=== PATIENT | male | born 1960 | race Two or more races ===

== ENCOUNTER → 2023-11-28 | Outpatient (CLI) | payer MEDICARE, OTHER ==
--- NOTE | 2023-11-28 10:39 | US ---
EXAMINATION TYPE: US liver DATE OF EXAM: 11/28/2023 COMPARISON: NONE CLINICAL INDICATION: Male, 63 years old with history of R94.5 ABN LIVER FUNCTION; Abnormal liver func tion test. TECHNIQUE: Multiple sonographic images of the right upper quadrant are obtained. FINDINGS: EXAM MEASUREMENTS: Liver Length: 16.7 cm Gallbladder Wall: 0.28 cm CBD: 0.54 cm Right Kidney: 13.0 x 6.3 x 4.4 cm REAL ESTATE REP NOTES: Exam is limited due to overlying bowel gas. Pancreas: Obscured. Liver: Slightly increased echogenicity. Coarse echotexture. Gallbladder: Multiple folds seen within the gallbladder. Evidence for sonographic Varma's sign: No CBD: Appears wnl Right Kidney: Enlarged. Renal pelvis appears dilated. IMPRESSION: 1. No evidence for acute process. 2. Mildly heterogenous liver compatible with hepatocellular disease. No suspicious masses. 3. Right extrarenal pelvis versus pelviectasis.
== END | disposition home or self-care (01) ==
LOC: RADUSWWP 08:49
PROVIDERS: ATTEND Internal Medicine
DX: R94.5 Abnormal results of liver function studies (principal); K76.89 Other specified diseases of liver
CPT/HCPCS: 76705

== ENCOUNTER 2024-08-27 10:03 | Day surgery (SDC) | payer MEDICARE, OTHER ==
[2024-08-27] MEDS: IV FLUID CONTINUATION 1,000 ML IV ONE (10:26)
[2024-08-27 10:29] VITALS: TEMP 97.3
[2024-08-27] MEDS: MIDAZOLAM 2 MG/2 ML VIAL IV ONE (10:56)
[2024-08-27] MEDS ORDERED: PROPOFOL 10 MG/ML 20 ML VIAL IV ONE (11:03)
[2024-08-27] MEDS ORDERED: LIDOCAINE 1% INJ 10MG/ML (20 ML MDV) ONE (11:03)
--- NOTE | 2024-08-27 11:04 | P.GSHP ---
History of Present Illness H&P Date: 08/27/24 Chief Complaint: Colon cancer screening 64-year-old male here for colonoscopy. He has not had 1 previously. No bowel complaints. No family history of colon cancer. Past Medical History Past Medical History: Hyperlipidemia Additional Past Medical History / Comment(s): has trouble breathing out of his nose, was fx. in the past, insomnia History of Any Multi-Drug Resistant Organisms: None Reported Past Surgical History: No Surgical Hx Reported Additional Past Anesthesia/Blood Transfusion Reaction / Comment(s): no family problems w/surgery or anesthesia Smoking Status: Never smoker Medications and Allergies Home Medications Medication Instructions Recorded Confirmed Type Ergocalciferol [Vitamin D2 (1250 1,250 mcg PO FR 08/23/24 08/27/24 History Mcg = 84851 Iu)] FLUoxetine HCL [PROzac] 20 mg PO 1700 08/23/24 08/27/24 History FLUoxetine HCL [Prozac] 40 mg PO 2000 08/23/24 08/27/24 History QUEtiapine [SEROquel] 200 mg PO HS 08/23/24 08/27/24 History Rosuvastatin Calcium [Crestor] 5 mg PO 1600 08/23/24 08/27/24 History clonazePAM [KlonoPIN] 0.5 mg PO 0800,1100,1400,1700 08/23/24 08/27/24 History Allergies Allergy/AdvReac Type Severity Reaction Status Date / Time No Known Allergies Allergy Verified 08/23/24 16:01 Surgical - Exam Vital Signs Temp Pulse Resp BP Pulse Ox 97.3 F L 48 L 16 136/69 97 08/27/24 10:27 08/27/24 10:27 08/27/24 10:27 08/27/24 10:27 08/27/24 10:27 Physical exam: General: Well-developed, well-nourished HEENT: Normocephalic, sclerae nonicteric Abdomen: Nontender, nondistended Extremities: No edema Neuro: Alert and oriented Assessment and Plan (1) Colon cancer screening Narrative/Plan: Will proceed with colonoscopy at this time. Current Visit: Yes Status: Acute Code(s): Z12.11 - ENCOUNTER FOR SCREENING FOR MALIGNANT NEOPLASM OF COLON SNOMED Code(s): 755352405
--- NOTE | 2024-08-27 11:35 | P.PCN ---
Date of Procedure: 08/27/24 Procedure(s) Performed: PREOPERATIVE DIAGNOSIS: Colon cancer screening POSTOPERATIVE DIAGNOSIS: Multiple polyps, diverticulosis PROCEDURE: Colonoscopy with snare polypectomy and clip placement ANESTHESIA: MAC SURGEON: Shane Ramesh M.D. SPECIMENS: Polyps ENDOSCOPIC PROCEDURE: The patient was placed on the endoscopy table in the left decubitus position. The Olympus colonoscope was inserted into the anus and passed under direct visualization to the base of the cecum. The appendiceal orifice was visualized. From that point the scope was slowly withdrawn inspecting all surfaces carefully. There were no neoplastic inflammatory or polypoid lesions throughout the cecum, ascending, transverse, or descending colon. In the sigmoid colon there were 2 small polyps removed using the snare with cautery technique. In the rectum at 12 cm there was a larger polyp measuring just over 2 cm that was removed as 2 pieces. The polypectomy site measured about 1 to 1.5 cm and 2 clips were deployed to reapproximate the mucosal margins. In the rectum distally there were a total of 4 polyps the largest measuring about 1.5 cm. These were again removed using the snare with cautery technique. The patient had mild scattered diverticulosis. Digital rectal examination was normal. The patient was taken to the recovery room in stable condition per anesthesia guidelines. RECOMMENDATIONS: Await biopsy results. Will require short-term repeat colonoscopy 6 to 12 months.
[2024-08-27 11:43] VITALS: PULSE 44
[2024-08-27 11:54] VITALS: BP 110/63; RESP 16
== END 2024-08-27 12:27 | disposition home or self-care (01) ==
LOC: ORWHC2ENDO 10:03
PROVIDERS: ATTEND Surgery
DX: Z12.11 Encounter for screening for malignant neoplasm of colon (principal); D12.5 Benign neoplasm of sigmoid colon; D12.8 Benign neoplasm of rectum; K57.30 Diverticulosis of large intestine without perforation or abscess without bleeding; E78.5 Hyperlipidemia, unspecified; G47.00 Insomnia, unspecified; F41.9 Anxiety disorder, unspecified; F40.00 Agoraphobia, unspecified; Z79.899 Other long term (current) drug therapy
CPT/HCPCS: 88305; 45385; J2250; J2003; J2704